=== PATIENT | female | born 1945 | race Caucasian/White ===

== ENCOUNTER → 2017-02-12 | Outpatient (CLI) | payer MEDICARE ==
[~2017-02-12] MED LIST: AMIT25TA PO; CHOL200040 PO; CYAN500T18 PO; DIPH25CA61 PO; FENO145T32 PO; FLUT1DIS IH; GABA300C10 PO; GLUC1TAB27 PO; GUIAFENESIN; HYDR1TAB12 PO; KRIL1CAP9 PO; LATA2.5D3 EACHEYE; LEVO100T5 PO; LISI1TAB5 PO; LYSI500T PO; METF500T4 PO; METO200T3 PO; OMEP-110 PO; PARO10TA3 PO; SIMV40TA3 PO; TRAM50TA2 PO; WARF7.5T PO; [UNRECOGNIZED DRUG - CODE] PO; [UNRECOGNIZED DRUG - CODE] PO
== END | disposition home or self-care (01) ==
LOC: CFH 07:40
PROVIDERS: ATTEND Internal Medicine
DX: I08.3 Combined rheumatic disorders of mitral, aortic and tricuspid valves (principal); I37.1 Nonrheumatic pulmonary valve insufficiency; J44.9 Chronic obstructive pulmonary disease, unspecified; I10 Essential (primary) hypertension; C44.80 Unspecified malignant neoplasm of overlapping sites of skin; E11.40 Type 2 diabetes mellitus with diabetic neuropathy, unspecified; E03.9 Hypothyroidism, unspecified; K21.9 Gastro-esophageal reflux disease without esophagitis; F32.9 Major depressive disorder, single episode, unspecified; E78.5 Hyperlipidemia, unspecified; G89.29 Other chronic pain; M54.2 Cervicalgia; K14.6 Glossodynia; H40.9 Unspecified glaucoma; J30.9 Allergic rhinitis, unspecified; R19.7 Diarrhea, unspecified; M25.559 Pain in unspecified hip; L30.9 Dermatitis, unspecified; R39.198 Other difficulties with micturition; Z87.891 Personal history of nicotine dependence; Z86.711 Personal history of pulmonary embolism
CPT/HCPCS: 93306

== ENCOUNTER → 2017-03-01 | Outpatient (CLI) | payer MEDICARE | END | disposition home or self-care (01) | LOC: CFH 11:30 | PROVIDERS: ATTEND Physician Assistant | DX: M19.012 Primary osteoarthritis, left shoulder (principal) ==

== ENCOUNTER → 2018-07-25 | Outpatient (CLI) | payer MEDICARE ==
[~2018-07-25] MED LIST changes: -METF500T4 PO; +METF500T5 PO; -METO200T3 PO; +METO200T47 PO; +OMNIPAQUE 350 MG/ML, 100ML BOTTLE ONE
== END | disposition home or self-care (01) ==
LOC: CFH 09:46
PROVIDERS: ATTEND Physician Assistant
DX: K76.0 Fatty (change of) liver, not elsewhere classified (principal); K40.90 Unilateral inguinal hernia, without obstruction or gangrene, not specified as recurrent; N28.1 Cyst of kidney, acquired; Z87.891 Personal history of nicotine dependence
CPT/HCPCS: 74177; 82565; Q9967

== ENCOUNTER 2018-08-11 19:54 | Inpatient (IN) | payer MEDICARE ==
[~2018-08-11] VITALS: Ht 160 cm; Wt 87.7 kg
[~2018-08-11 19:54] MED LIST changes: +METF500T17 PO; -METF500T5 PO; -OMNIPAQUE 350 MG/ML, 100ML BOTTLE ONE
[2018-08-11] MEDS ORDERED: DILTIAZEM 125 MG in DEXTROSE 5% 100 ML IV SCH (20:13)
[2018-08-11 20:29] LABS: BASOPHILS # (AUTO) 0.07 x10^3/uL (0-0.1); BASOPHILS % (AUTO) 1 % (0-1); EOSINOPHILS # (AUTO) 0.03 x10^3/uL (0-0.4); EOSINOPHILS % (AUTO) 0 % (1-7); LYMPHOCYTES # (AUTO) 2.14 x10^3/uL (1-3.4); LYMPHOCYTES % (AUTO) 22 % (22-44); MD NO; MEAN CORPUSCULAR HEMOGLOBIN 31.6 pg (27.0-34.8); MEAN CORPUSCULAR VOLUME 95.8 fL (80-100); MONOCYTES # (AUTO) 0.46 x10^3/uL (0.2-0.8); MONOCYTES % (AUTO) 5 % (2-9); NEUTROPHILS # (AUTO) 7.24 x10^3/uL (1.8-6.8); NEUTROPHILS % (AUTO) 73 % (42-75); PLATELET COUNT 393 x10^3/uL (130-400); RED BLOOD COUNT 4.92 x10^6/uL (3.82-5.3); RED CELL DISTRIBUTION WIDTH 14.2 % (9.6-15.2)
[2018-08-11] MEDS ORDERED: DILTIAZEM 5 MG/ML, 10ML IV ONE (20:30)
[2018-08-11] MEDS ORDERED: SODIUM CHLORIDE 0.9%, 500ML IVBOLUS ONE (20:30)
[2018-08-11] MEDS ORDERED: DILTIAZEM 5 MG/ML, 5ML IV ONE (20:30)
[2018-08-11 20:39] LABS: INTERNATIONAL NORMALIZED RATIO 1.54 (0.93-1.1); PROTHROMBIN TIME 15.9 Seconds (9.6-11.5)
[2018-08-11 20:41] LABS: ALBUMIN 3.1 g/dL (3.4-5.0); ANION GAP 15 mmol/L (5-15); CALCIUM 9.3 mg/dL (8.5-10.1); CHLORIDE 101 mmol/L (98-107); CREATININE 1.22 mg/dL (0.55-1.02)
[2018-08-11 20:45] LABS: TROPONIN I < 0.015 ng/mL (0.000-0.045)
[2018-08-11] MEDS ORDERED: LIDOCAINE 2% PO (21:31)
[2018-08-11] MEDS ORDERED: GLUC-88 PO (21:31)
[2018-08-11] MEDS ORDERED: COLE625T12 PO (21:31)
[2018-08-11] MEDS ORDERED: FLUTICASONE NAS (21:31)
[2018-08-11] MEDS ORDERED: TRAM50TA2 PO (21:31)
[2018-08-11] MEDS ORDERED: ATOR20TA9 PO (21:31)
[2018-08-11] MEDS ORDERED: MONT10TA9 PO (21:31)
[2018-08-11] MEDS ORDERED: BRIM5DRO3 EACHEYE (21:31)
[2018-08-11] MEDS ORDERED: GUAI400T66 PO (21:31)
[2018-08-11] MEDS ORDERED: [UNRECOGNIZED DRUG - REMARK] PO (21:31)
[2018-08-11] MEDS ORDERED: OMEP-110 PO (21:31)
[2018-08-11] MEDS ORDERED: METF500T17 PO (21:31)
[2018-08-11] MEDS ORDERED: GABA-827 PO (21:31)
[2018-08-11] MEDS ORDERED: FENO200C PO (21:31)
[2018-08-11] MEDS ORDERED: METO-93 PO (21:31)
[2018-08-11] MEDS ORDERED: HYDR-883 PO (21:31)
[2018-08-11] MEDS ORDERED: CARB15DR5 EACHEYE (21:31)
[2018-08-11] MEDS ORDERED: PARO40TA3 PO (21:31)
[2018-08-11] MEDS ORDERED: LATA7.5D EACHEYE (21:31)
[2018-08-11] MEDS ORDERED: AMIT25TA PO (21:31)
[2018-08-11 21:47] LABS: FREE T4 (FREE THYROXINE) 0.83 ng/dL (0.76-1.46); THYROID STIMULATING HORMONE 6.97 mIU/L (0.358-3.740)
[2018-08-11] MEDS ORDERED: ACETAMINOPHEN 325 MG TABLET PO PRN (22:30)
[2018-08-11] MEDS ORDERED: POLYETHYLENE GLYCOL 17 GM PACKET PO PRN (22:30)
[2018-08-11] MEDS ORDERED: ONDANSETRON ODT 4 MG PO PRN (22:30)
[2018-08-11] MEDS ORDERED: DILTIAZEM 5 MG/ML, 5ML IVPush PRN (22:30)
[2018-08-11] MEDS ORDERED: ONDANSETRON 2MG/ML, 2ML IVPush PRN (22:30)
[2018-08-11] MEDS: MELATONIN 5 MG TABLET PO SCH (22:42)
[2018-08-11] MEDS: SODIUM CHLORIDE 0.9% 1,000 ML IV SCH (22:43)
[2018-08-11 23:12] VITALS: BP 105/69
[2018-08-11] MEDS ORDERED: WARFARIN 5 MG TABLET PO-COUM ONE (23:45)
[2018-08-12] MEDS ORDERED: HYDROcodone/APAP 10/325 MG TABLET PO ONE (00:30)
[2018-08-12] MEDS: HYDROcodone/APAP 10/325 MG TABLET PO PRN ×3 (02:29→20:47)
[2018-08-12 02:44] VITALS: BP 138/88
[2018-08-12 05:10] LABS: ANION GAP 6 mmol/L (5-15); CALCIUM 8.4 mg/dL (8.5-10.1); CHLORIDE 103 mmol/L (98-107); CHOLESTEROL, TOTAL 164 mg/dL (140-239); CREATININE 0.76 mg/dL (0.55-1.02); TRIGLYCERIDES 624 mg/dL (50-200)
[2018-08-12 05:12] LABS: HDL CHOL % 20 % (28-40); HDL CHOLESTEROL (DIRECT) 33 mg/dL (40-60)
[2018-08-12 05:16] LABS: INTERNATIONAL NORMALIZED RATIO 1.76 (0.93-1.1); PROTHROMBIN TIME 18.1 Seconds (9.6-11.5)
[2018-08-12 06:59] VITALS: BP 131/78
[2018-08-12 07:50] LABS: MICROSCOPIC INDICATED
[2018-08-12] MEDS ORDERED: ALBUTEROL/IPRATROPIUM 2.5MG/0.5MG, 3 ML ONE (08:16)
[2018-08-12] MEDS ORDERED: CYANOCOBALAMIN 1,000 MCG TABLET ONE (08:18)
[2018-08-12 08:20] LABS: CULTURE INDICATED? YES
[2018-08-12] MEDS: INSULIN LISPRO 100 UNITS/ML, PEN SQ-INSULIN SCH ×4 (08:28→20:49)
[2018-08-12] MEDS: OMEPRAZOLE 20 MG CAPSULE.DR PO SCH (08:29)
[2018-08-12] MEDS: FENOFIBRATE 54 MG TABLET PO SCH (08:30)
[2018-08-12] MEDS: OMEGA-3/FISH OIL CAPSULE PO SCH (08:30)
[2018-08-12] MEDS: ASCORBIC ACID 500 MG TABLET PO SCH (08:30)
[2018-08-12] MEDS: CHOLECALCIFEROL 1,000 UNIT TABLET PO SCH (08:30)
[2018-08-12] MEDS ORDERED: MAGNESIUM SULFATE 4 GM in SODIUM CHLORIDE 0.9% 100 ML IV ONE (08:30)
[2018-08-12] MEDS: LEVOTHYROXINE 100 MCG TABLET PO SCH (08:30)
[2018-08-12] MEDS: PAROXETINE 20 MG TABLET PO SCH (08:30)
[2018-08-12] MEDS: COLESEVELAM 625 MG TABLET PO SCH ×2 (08:30→20:27)
[2018-08-12] MEDS: MONTELUKAST 10 MG TABLET PO SCH (08:31)
[2018-08-12] MEDS: HYDROCHLOROTHIAZIDE 12.5 MG CAPSULE PO SCH (08:31)
[2018-08-12] MEDS: metFORMIN 500 MG TABLET PO SCH ×3 (08:31→20:27)
[2018-08-12] MEDS: GABAPENTIN 400 MG CAPSULE PO SCH ×3 (08:31→20:27)
[2018-08-12] MEDS: LISINOPRIL 20 MG TABLET PO SCH (08:31)
[2018-08-12] MEDS: LATANOPROST OPHTH 0.005%, 2.5ML EACHEYE SCH (08:41)
[2018-08-12] MEDS: BRIMONIDINE TARTRATE OPHTH 0.15%, 5ML EACHEYE SCH ×2 (08:41→20:26)
[2018-08-12] MEDS ORDERED: [UNRECOGNIZED DRUG - OTHER] PO SCH (09:00)
[2018-08-12] MEDS: CYANOCOBALOMIN 100MCG TABLET PO SCH (11:12)
[2018-08-12] MEDS: SODIUM CHLORIDE 0.9% 1,000 ML IV SCH (11:22)
[2018-08-12 11:25] LABS: CLOSTRIDIUM DIFFICILE ANTIGEN NEGATIVE; CLOSTRIDIUM DIFFICILE TOXIN NEGATIVE (Negative)
[2018-08-12 12:22] VITALS: BP 113/79
[2018-08-12] MEDS: METOPROLOL TARTRATE 50 MG TABLET PO SCH (17:36)
[2018-08-12] MEDS ORDERED: WARFARIN 5 MG TABLET PO-COUM ONE (18:00)
[2018-08-12 19:04] VITALS: BP 148/74
[2018-08-12] MEDS: ATORVASTATIN 40 MG TABLET PO SCH (20:27)
[2018-08-12] MEDS: AMITRIPTYLINE 25 MG TABLET PO SCH (20:27)
[2018-08-12] MEDS: MELATONIN 5 MG TABLET PO SCH (20:47)
[2018-08-13] VITALS (7 sets, daily range): BP systolic 116–162; BP diastolic 66–100
[2018-08-13] MEDS: SODIUM CHLORIDE 0.9% 1,000 ML IV SCH ×2 (01:17→15:08)
[2018-08-13] MEDS: METOPROLOL TARTRATE 50 MG TABLET PO SCH ×2 (05:45→18:02)
[2018-08-13] MEDS: LEVOTHYROXINE 100 MCG TABLET PO SCH (05:45)
[2018-08-13 06:08] LABS: INTERNATIONAL NORMALIZED RATIO 1.98 (0.93-1.1); PROTHROMBIN TIME 20.3 Seconds (9.6-11.5)
[2018-08-13 06:13] LABS: ANION GAP 8 mmol/L (5-15); BASOPHILS # (AUTO) 0.03 x10^3/uL (0-0.1); BASOPHILS % (AUTO) 0 % (0-1); CALCIUM 8.6 mg/dL (8.5-10.1); CHLORIDE 106 mmol/L (98-107); EOSINOPHILS # (AUTO) 0.09 x10^3/uL (0-0.4); EOSINOPHILS % (AUTO) 1 % (1-7); LYMPHOCYTES % (AUTO) 24 % (22-44); MD NO; MEAN CORPUSCULAR HEMOGLOBIN 32.8 pg (27.0-34.8); MEAN CORPUSCULAR HGB CONC 34.4 g/dL (32.4-35.8); MEAN CORPUSCULAR VOLUME 95.4 fL (80-100); MEAN PLATELET VOLUME 7.8 fL (7.4-10.4); MONOCYTES # (AUTO) 0.47 x10^3/uL (0.2-0.8); MONOCYTES % (AUTO) 6 % (2-9); NEUTROPHILS # (AUTO) 5.17 x10^3/uL (1.8-6.8); NEUTROPHILS % (AUTO) 68 % (42-75); PLATELET COUNT 288 x10^3/uL (130-400)
[2018-08-13 06:14] LABS: CREATININE 0.56 mg/dL (0.55-1.02)
[2018-08-13] MEDS: OMEPRAZOLE 20 MG CAPSULE.DR PO SCH (09:05)
[2018-08-13] MEDS: PAROXETINE 20 MG TABLET PO SCH (09:05)
[2018-08-13] MEDS: LISINOPRIL 20 MG TABLET PO SCH (09:05)
[2018-08-13] MEDS: metFORMIN 500 MG TABLET PO SCH ×3 (09:06→20:33)
[2018-08-13] MEDS: GABAPENTIN 400 MG CAPSULE PO SCH ×3 (09:06→20:33)
[2018-08-13] MEDS: COLESEVELAM 625 MG TABLET PO SCH ×2 (09:07→20:32)
[2018-08-13] MEDS: FENOFIBRATE 54 MG TABLET PO SCH (09:07)
[2018-08-13] MEDS: HYDROCHLOROTHIAZIDE 12.5 MG CAPSULE PO SCH (09:08)
[2018-08-13] MEDS: CHOLECALCIFEROL 1,000 UNIT TABLET PO SCH (09:08)
[2018-08-13] MEDS: CYANOCOBALOMIN 100MCG TABLET PO SCH (09:08)
[2018-08-13] MEDS: INSULIN LISPRO 100 UNITS/ML, PEN SQ-INSULIN SCH ×4 (09:08→20:39)
[2018-08-13] MEDS: OMEGA-3/FISH OIL CAPSULE PO SCH (09:08)
[2018-08-13] MEDS: HYDROcodone/APAP 10/325 MG TABLET PO PRN ×2 (09:08→19:31)
[2018-08-13] MEDS: MONTELUKAST 10 MG TABLET PO SCH (09:09)
[2018-08-13] MEDS: ASCORBIC ACID 500 MG TABLET PO SCH (09:09)
[2018-08-13] MEDS: BRIMONIDINE TARTRATE OPHTH 0.15%, 5ML EACHEYE SCH ×2 (09:10→20:32)
[2018-08-13] MEDS: LATANOPROST OPHTH 0.005%, 2.5ML EACHEYE SCH (09:11)
[2018-08-13] MEDS ORDERED: DIGOXIN 0.25 MG/ML, 2ML IVPush ONE (11:00)
[2018-08-13] MEDS ORDERED: METOPROLOL TARTRATE 50 MG TABLET PO ONE (11:00)
[2018-08-13] MEDS ORDERED: WARFARIN 5 MG TABLET PO-COUM ONE (18:00)
[2018-08-13] MEDS: AMITRIPTYLINE 25 MG TABLET PO SCH (20:32)
[2018-08-13] MEDS: MELATONIN 5 MG TABLET PO SCH (20:32)
[2018-08-13] MEDS: ATORVASTATIN 40 MG TABLET PO SCH (20:32)
[2018-08-14 03:22] VITALS: BP 144/79
[2018-08-14] MEDS: SODIUM CHLORIDE 0.9% 1,000 ML IV SCH (04:10)
[2018-08-14 05:58] LABS: BASOPHILS # (AUTO) 0.02 x10^3/uL (0-0.1); BASOPHILS % (AUTO) 0 % (0-1); EOSINOPHILS # (AUTO) 0.08 x10^3/uL (0-0.4); EOSINOPHILS % (AUTO) 1 % (1-7); LYMPHOCYTES # (AUTO) 1.47 x10^3/uL (1-3.4); LYMPHOCYTES % (AUTO) 17 % (22-44); MD NO; MEAN CORPUSCULAR HEMOGLOBIN 32.2 pg (27.0-34.8); MEAN CORPUSCULAR HGB CONC 33.5 g/dL (32.4-35.8); MEAN PLATELET VOLUME 7.9 fL (7.4-10.4); MONOCYTES # (AUTO) 0.48 x10^3/uL (0.2-0.8); MONOCYTES % (AUTO) 6 % (2-9); NEUTROPHILS # (AUTO) 6.62 x10^3/uL (1.8-6.8); NEUTROPHILS % (AUTO) 76 % (42-75); PLATELET COUNT 282 x10^3/uL (130-400); RED BLOOD COUNT 4.21 x10^6/uL (3.82-5.3)
[2018-08-14 05:59] LABS: INTERNATIONAL NORMALIZED RATIO 1.81 (0.93-1.1); PROTHROMBIN TIME 18.6 Seconds (9.6-11.5)
[2018-08-14 06:03] LABS: ANION GAP 6 mmol/L (5-15); CALCIUM 8.7 mg/dL (8.5-10.1); CHLORIDE 106 mmol/L (98-107); CREATININE 0.58 mg/dL (0.55-1.02)
[2018-08-14 06:13] VITALS: BP 154/82
[2018-08-14] MEDS: LEVOTHYROXINE 100 MCG TABLET PO SCH (06:15)
[2018-08-14] MEDS: METOPROLOL TARTRATE 50 MG TABLET PO SCH (06:15)
[2018-08-14 06:25] LABS: HEMOGLOBIN A1C 8.3 % (4.2-6.3)
[2018-08-14] MEDS: HYDROcodone/APAP 10/325 MG TABLET PO PRN ×2 (06:31→14:56)
[2018-08-14 07:20] VITALS: BP 132/79
[2018-08-14] MEDS: INSULIN LISPRO 100 UNITS/ML, PEN SQ-INSULIN SCH ×2 (08:42→11:00)
[2018-08-14] MEDS: FENOFIBRATE 54 MG TABLET PO SCH (08:43)
[2018-08-14] MEDS: BRIMONIDINE TARTRATE OPHTH 0.15%, 5ML EACHEYE SCH (08:43)
[2018-08-14] MEDS: COLESEVELAM 625 MG TABLET PO SCH (08:43)
[2018-08-14] MEDS: MONTELUKAST 10 MG TABLET PO SCH (08:44)
[2018-08-14] MEDS: ASCORBIC ACID 500 MG TABLET PO SCH (08:44)
[2018-08-14] MEDS: OMEPRAZOLE 20 MG CAPSULE.DR PO SCH (08:44)
[2018-08-14] MEDS: OMEGA-3/FISH OIL CAPSULE PO SCH (08:44)
[2018-08-14] MEDS: CHOLECALCIFEROL 1,000 UNIT TABLET PO SCH (08:44)
[2018-08-14] MEDS: PAROXETINE 20 MG TABLET PO SCH (08:45)
[2018-08-14] MEDS: HYDROCHLOROTHIAZIDE 12.5 MG CAPSULE PO SCH (08:45)
[2018-08-14] MEDS: LISINOPRIL 20 MG TABLET PO SCH (08:45)
[2018-08-14] MEDS: metFORMIN 500 MG TABLET PO SCH (08:46)
[2018-08-14] MEDS: GABAPENTIN 400 MG CAPSULE PO SCH (08:46)
[2018-08-14] MEDS: LATANOPROST OPHTH 0.005%, 2.5ML EACHEYE SCH (08:49)
[2018-08-14] MEDS: CYANOCOBALOMIN 100MCG TABLET PO SCH (09:00)
[2018-08-14] MEDS ORDERED: METO50TA82 PO (11:44)
[2018-08-14] MEDS ORDERED: WARFARIN 7.5 MG TABLET PO-COUM ONE (18:00)
== END 2018-08-14 16:00 | disposition home health service (06) | DRG 308 ==
LOC: ED 21:13 → EDIP 21:20 → 5SO 22:20 → DCLOUNGE 08-14 15:38
PROVIDERS: ADMIT Hospitalist; ATTEND Hospitalist
DX: I48.91 Unspecified atrial fibrillation (principal); N17.0 Acute kidney failure with tubular necrosis; J96.11 Chronic respiratory failure with hypoxia; E03.9 Hypothyroidism, unspecified; E78.5 Hyperlipidemia, unspecified; I10 Essential (primary) hypertension; Z96.653 Presence of artificial knee joint, bilateral; F32.9 Major depressive disorder, single episode, unspecified; E11.40 Type 2 diabetes mellitus with diabetic neuropathy, unspecified; G89.29 Other chronic pain; M54.9 Dorsalgia, unspecified; E66.9 Obesity, unspecified; Z68.34 Body mass index [BMI] 34.0-34.9, adult; Z79.01 Long term (current) use of anticoagulants; Z86.718 Personal history of other venous thrombosis and embolism; Z90.710 Acquired absence of both cervix and uterus; Z99.81 Dependence on supplemental oxygen; Z90.49 Acquired absence of other specified parts of digestive tract
CPT/HCPCS: 36415; 71045; 80048; 80061; 81001; 82040; 82962; 83036; 83735; 83880; 84100; 84439; 84443; 84484; 85025; 85610; 87086; 87324; 93005; 93306; 96361; 96365; 96374; G0378; J3475; J1160; J1815; J7030; J7040

== ENCOUNTER → 2018-08-22 | Outpatient (CLI) | payer MEDICARE ==
[~2018-08-22] MED LIST changes: +ATOR20TA9 PO; +BRIM5DRO3 EACHEYE; +CARB15DR5 EACHEYE; +COLE625T12 PO; +FENO200C PO; +FLUTICASONE NAS; +FURO-93 PO; +GABA-827 PO; +GLUC-88 PO; +GUAI400T66 PO; +HYDR-883 PO; +LATA7.5D EACHEYE; +LEVO500T8 PO; +LIDOCAINE 2% PO; +LISI-170 PO; +METO-93 PO; +METO50TA82 PO; +MONT10TA9 PO; +PARO40TA3 PO; +POTA20TA6 PO; +[UNRECOGNIZED DRUG - REMARK] PO
== END | disposition home or self-care (01) ==
LOC: CFH 11:30
PROVIDERS: ATTEND Physician Assistant
DX: J90 Pleural effusion, not elsewhere classified (principal)
CPT/HCPCS: 71046

== ENCOUNTER 2018-08-23 10:41 | Inpatient (IN) | payer MEDICARE ==
[~2018-08-23] VITALS: Ht 162.1 cm; Wt 82.6 kg
[~2018-08-23 10:41] MED LIST changes: -FURO-93 PO; +HYDR-3652 PO; -HYDR-883 PO; -LEVO500T8 PO; -LISI-170 PO; -POTA20TA6 PO
[2018-08-23] MEDS ORDERED: SODIUM CHLORIDE FLUSH 10ML SYR IVF ONE (11:30)
[2018-08-23 12:05] LABS: BASOPHILS # (AUTO) 0.02 x10^3/uL (0-0.1); BASOPHILS % (AUTO) 0 % (0-1); EOSINOPHILS # (AUTO) 0.06 x10^3/uL (0-0.4); EOSINOPHILS % (AUTO) 1 % (1-7); LYMPHOCYTES # (AUTO) 1.35 x10^3/uL (1-3.4); LYMPHOCYTES % (AUTO) 15 % (22-44); MD NO; MEAN CORPUSCULAR HEMOGLOBIN 32.7 pg (27.0-34.8); MEAN CORPUSCULAR HGB CONC 33.6 g/dL (32.4-35.8); MEAN CORPUSCULAR VOLUME 97.2 fL (80-100); MEAN PLATELET VOLUME 7.8 fL (7.4-10.4); MONOCYTES # (AUTO) 0.52 x10^3/uL (0.2-0.8); MONOCYTES % (AUTO) 6 % (2-9); NEUTROPHILS # (AUTO) 6.99 x10^3/uL (1.8-6.8); NEUTROPHILS % (AUTO) 78 % (42-75); PLATELET COUNT 393 x10^3/uL (130-400); RED BLOOD COUNT 3.86 x10^6/uL (3.82-5.3); RED CELL DISTRIBUTION WIDTH 13.8 % (9.6-15.2)
[2018-08-23 12:06] LABS: INTERNATIONAL NORMALIZED RATIO 3.97 (0.93-1.1); PROTHROMBIN TIME 40.2 Seconds (9.6-11.5)
[2018-08-23 12:07] LABS: CHLORIDE 101 mmol/L (98-107)
[2018-08-23 12:56] LABS: ALBUMIN 2.5 g/dL (3.4-5.0); ANION GAP 10 mmol/L (5-15); CREATININE 0.73 mg/dL (0.55-1.02)
[2018-08-23 13:00] LABS: TROPONIN I < 0.015 ng/mL (0.000-0.045)
[2018-08-23] MEDS ORDERED: SODIUM CHLORIDE FLUSH 10ML SYR IVF PRN (13:30)
[2018-08-23] MEDS ORDERED: POLYETHYLENE GLYCOL 17 GM PACKET PO PRN (14:00)
[2018-08-23] MEDS ORDERED: ENALAPRILAT 1.25 MG/ML, 2ML IVPush PRN (14:00)
[2018-08-23] MEDS ORDERED: ONDANSETRON 2MG/ML, 2ML IVPush PRN (14:00)
[2018-08-23] MEDS ORDERED: ACETAMINOPHEN 325 MG TABLET PO PRN (14:00)
[2018-08-23] MEDS ORDERED: DOCUSATE 100 MG CAPSULE PO PRN (14:00)
[2018-08-23] MEDS ORDERED: BISACODYL 10 MG SUPP PR PRN (14:00)
[2018-08-23 14:41] VITALS: BP 151/65
[2018-08-23] MEDS: INSULIN LISPRO 100 UNITS/ML, PEN SQ-INSULIN SCH ×2 (16:00→22:19)
[2018-08-23] MEDS: HYDROcodone/APAP 5/325 TABLET PO PRN (16:09)
[2018-08-23] MEDS: GABAPENTIN 100 MG CAPSULE PO SCH ×2 (16:11→21:51)
[2018-08-23] MEDS ORDERED: LEVO500T8 PO (16:27)
[2018-08-23] MEDS: FUROSEMIDE 20 MG/2 ML IV SCH (17:23)
[2018-08-23] MEDS: POTASSIUM CHLORIDE 20 MEQ TAB.ER.PRT PO SCH (17:23)
[2018-08-23 17:27] VITALS: BP 167/89
[2018-08-23] MEDS ORDERED: WARFARIN 2 MG TABLET PO-COUM ONE (18:00)
[2018-08-23 18:09] LABS: MICROSCOPIC AUTO
[2018-08-23 18:10] LABS: CULTURE INDICATED? YES
[2018-08-23 18:39] VITALS: BP 161/86
[2018-08-23] MEDS: METOPROLOL TARTRATE 50 MG TABLET PO SCH (18:41)
[2018-08-23 18:57] VITALS: BP 149/66
[2018-08-23 19:31] LABS: TROPONIN I < 0.015 ng/mL (0.000-0.045)
[2018-08-23] MEDS ORDERED: MELATONIN 3 MG TABLET ONE (21:30)
[2018-08-23] MEDS: ATORVASTATIN 40 MG TABLET PO SCH (21:49)
[2018-08-23] MEDS: MELATONIN 3 MG TABLET PO PRN (21:49)
[2018-08-23] MEDS: COLESEVELAM 625 MG TABLET PO SCH (21:49)
[2018-08-23] MEDS: AMITRIPTYLINE 25 MG TABLET PO SCH (21:50)
[2018-08-23] MEDS: BRIMONIDINE TARTRATE OPHTH 0.15%, 5ML EACHEYE SCH (22:18)
[2018-08-24 00:33] VITALS: BP 161/54
[2018-08-24 00:55] LABS: TROPONIN I < 0.015 ng/mL (0.000-0.045)
[2018-08-24 04:53] LABS: BASOPHILS # (AUTO) 0.02 x10^3/uL (0-0.1); BASOPHILS % (AUTO) 0 % (0-1); EOSINOPHILS # (AUTO) 0.15 x10^3/uL (0-0.4); EOSINOPHILS % (AUTO) 2 % (1-7); LYMPHOCYTES # (AUTO) 1.62 x10^3/uL (1-3.4); LYMPHOCYTES % (AUTO) 21 % (22-44); MD NO; MEAN CORPUSCULAR HEMOGLOBIN 32.2 pg (27.0-34.8); MEAN CORPUSCULAR VOLUME 97.4 fL (80-100); MEAN PLATELET VOLUME 7.8 fL (7.4-10.4); MONOCYTES # (AUTO) 0.64 x10^3/uL (0.2-0.8); MONOCYTES % (AUTO) 8 % (2-9); NEUTROPHILS # (AUTO) 5.46 x10^3/uL (1.8-6.8); NEUTROPHILS % (AUTO) 69 % (42-75); PLATELET COUNT 366 x10^3/uL (130-400); RED CELL DISTRIBUTION WIDTH 13.8 % (9.6-15.2)
[2018-08-24 04:54] LABS: INTERNATIONAL NORMALIZED RATIO 3.63 (0.93-1.1); PROTHROMBIN TIME 36.8 Seconds (9.6-11.5)
[2018-08-24 05:04] LABS: CHLORIDE 100 mmol/L (98-107)
[2018-08-24 05:09] LABS: ANION GAP 7 mmol/L (5-15); CALCIUM 8.7 mg/dL (8.5-10.1); CREATININE 0.66 mg/dL (0.55-1.02)
[2018-08-24] MEDS: METOPROLOL TARTRATE 50 MG TABLET PO SCH ×2 (05:54→16:18)
[2018-08-24 07:05] VITALS: BP 171/67
[2018-08-24] MEDS ORDERED: CEFTRIAXONE 1,000 MG in SODIUM CHLORIDE 0.9% 50 ML IV SCH (07:30)
[2018-08-24] MEDS: INSULIN LISPRO 100 UNITS/ML, PEN SQ-INSULIN SCH ×4 (08:40→20:21)
[2018-08-24] MEDS: POTASSIUM CHLORIDE 20 MEQ TAB.ER.PRT PO SCH ×2 (08:41→16:18)
[2018-08-24] MEDS: HYDROcodone/APAP 5/325 TABLET PO PRN ×3 (08:41→21:14)
[2018-08-24] MEDS: LEVOTHYROXINE 100 MCG TABLET PO SCH (08:41)
[2018-08-24] MEDS: FUROSEMIDE 20 MG/2 ML IV SCH ×2 (08:41→16:20)
[2018-08-24] MEDS ORDERED: KRILL PO SCH (09:00)
[2018-08-24] MEDS ORDERED: EPA PO SCH (09:00)
[2018-08-24] MEDS ORDERED: [UNRECOGNIZED DRUG - OTHER] PO SCH (09:00)
[2018-08-24] MEDS ORDERED: LIPIDS PO SCH (09:00)
[2018-08-24] MEDS ORDERED: OMEGA PO SCH (09:00)
[2018-08-24] MEDS ORDERED: [UNRECOGNIZED DRUG - OTHER] PO SCH (09:00)
[2018-08-24] MEDS ORDERED: DHA PO SCH (09:00)
[2018-08-24] MEDS: PAROXETINE 20 MG TABLET PO SCH (09:59)
[2018-08-24] MEDS: GABAPENTIN 100 MG CAPSULE PO SCH ×3 (10:00→20:21)
[2018-08-24] MEDS: CYANOCOBALOMIN 100MCG TABLET PO SCH (10:01)
[2018-08-24] MEDS: LISINOPRIL 20 MG TABLET PO SCH (10:01)
[2018-08-24] MEDS: FENOFIBRATE 54 MG TABLET PO SCH (10:01)
[2018-08-24] MEDS: COLESEVELAM 625 MG TABLET PO SCH ×2 (10:01→20:21)
[2018-08-24] MEDS: ASCORBIC ACID 500 MG TABLET PO SCH (10:01)
[2018-08-24] MEDS: CHOLECALCIFEROL 1,000 UNIT TABLET PO SCH (10:01)
[2018-08-24] MEDS: LEVOFLOXACIN 500 MG TABLET PO SCH (10:01)
[2018-08-24] MEDS: MONTELUKAST 10 MG TABLET PO SCH (10:01)
[2018-08-24] MEDS: HYDROCHLOROTHIAZIDE 12.5 MG CAPSULE PO SCH (10:02)
[2018-08-24] MEDS: BRIMONIDINE TARTRATE OPHTH 0.15%, 5ML EACHEYE SCH ×2 (10:10→20:20)
[2018-08-24] MEDS: LATANOPROST OPHTH 0.005%, 2.5ML EACHEYE SCH (11:04)
[2018-08-24 13:54] VITALS: BP 113/57
[2018-08-24] MEDS ORDERED: WARFARIN 3 MG TABLET PO-COUM ONE (18:00)
[2018-08-24 19:12] VITALS: BP 155/69
[2018-08-24] MEDS: MELATONIN 3 MG TABLET PO PRN (20:20)
[2018-08-24] MEDS: AMITRIPTYLINE 25 MG TABLET PO SCH (20:21)
[2018-08-24] MEDS: ATORVASTATIN 40 MG TABLET PO SCH (20:21)
[2018-08-25 01:37] VITALS: BP 129/75
[2018-08-25 05:12] LABS: ANION GAP 6 mmol/L (5-15); CALCIUM 9.5 mg/dL (8.5-10.1); CHLORIDE 100 mmol/L (98-107)
[2018-08-25 05:13] LABS: CREATININE 0.75 mg/dL (0.55-1.02)
[2018-08-25] MEDS: METOPROLOL TARTRATE 50 MG TABLET PO SCH ×2 (06:13→18:15)
[2018-08-25] MEDS: LEVOTHYROXINE 100 MCG TABLET PO SCH (06:14)
[2018-08-25 07:05] VITALS: BP 157/69
[2018-08-25] MEDS: CHOLECALCIFEROL 1,000 UNIT TABLET PO SCH (08:17)
[2018-08-25] MEDS: POTASSIUM CHLORIDE 20 MEQ TAB.ER.PRT PO SCH ×2 (08:17→16:44)
[2018-08-25] MEDS: HYDROcodone/APAP 5/325 TABLET PO PRN ×3 (08:17→20:47)
[2018-08-25] MEDS: GABAPENTIN 100 MG CAPSULE PO SCH ×3 (08:17→20:47)
[2018-08-25] MEDS: FUROSEMIDE 20 MG/2 ML IV SCH ×2 (08:17→16:44)
[2018-08-25] MEDS: CYANOCOBALOMIN 100MCG TABLET PO SCH (08:17)
[2018-08-25] MEDS: HYDROCHLOROTHIAZIDE 12.5 MG CAPSULE PO SCH (08:18)
[2018-08-25] MEDS: FENOFIBRATE 54 MG TABLET PO SCH (08:18)
[2018-08-25] MEDS: COLESEVELAM 625 MG TABLET PO SCH ×2 (08:18→20:47)
[2018-08-25] MEDS: ASCORBIC ACID 500 MG TABLET PO SCH (08:18)
[2018-08-25] MEDS: MONTELUKAST 10 MG TABLET PO SCH (08:18)
[2018-08-25] MEDS: PAROXETINE 20 MG TABLET PO SCH (08:18)
[2018-08-25] MEDS: LISINOPRIL 20 MG TABLET PO SCH (08:19)
[2018-08-25] MEDS: LEVOFLOXACIN 500 MG TABLET PO SCH (08:19)
[2018-08-25] MEDS: INSULIN LISPRO 100 UNITS/ML, PEN SQ-INSULIN SCH ×4 (08:22→20:48)
[2018-08-25 09:13] LABS: INTERNATIONAL NORMALIZED RATIO 2.46 (0.93-1.1); PROTHROMBIN TIME 25.1 Seconds (9.6-11.5)
[2018-08-25] MEDS: LATANOPROST OPHTH 0.005%, 2.5ML EACHEYE SCH (10:04)
[2018-08-25] MEDS: CEFTRIAXONE PMX 1GM/50ML 50 ML IV SCH (10:04)
[2018-08-25] MEDS: BRIMONIDINE TARTRATE OPHTH 0.15%, 5ML EACHEYE SCH ×2 (10:04→20:48)
[2018-08-25 14:00] VITALS: BP 125/56
[2018-08-25] MEDS ORDERED: WARFARIN 7.5 MG TABLET PO-COUM ONE (18:00)
[2018-08-25 19:32] VITALS: BP 136/66
[2018-08-25] MEDS: MELATONIN 3 MG TABLET PO PRN (20:47)
[2018-08-25] MEDS: ATORVASTATIN 40 MG TABLET PO SCH (20:47)
[2018-08-25] MEDS: AMITRIPTYLINE 25 MG TABLET PO SCH (20:47)
[2018-08-26] VITALS: BP 101/55
[2018-08-26] MEDS: LEVOTHYROXINE 100 MCG TABLET PO SCH (05:31)
[2018-08-26] MEDS: HYDROcodone/APAP 5/325 TABLET PO PRN (05:31)
[2018-08-26 05:38] LABS: INTERNATIONAL NORMALIZED RATIO 1.84 (0.93-1.1); PROTHROMBIN TIME 18.7 Seconds (9.6-11.5)
[2018-08-26] MEDS: METOPROLOL TARTRATE 50 MG TABLET PO SCH (05:39)
[2018-08-26 05:42] LABS: ANION GAP 7 mmol/L (5-15); CALCIUM 9.9 mg/dL (8.5-10.1); CHLORIDE 99 mmol/L (98-107); CREATININE 0.83 mg/dL (0.55-1.02)
[2018-08-26 05:44] VITALS: BP 147/77
[2018-08-26 05:44] LABS: BASOPHILS # (AUTO) 0.06 x10^3/uL (0-0.1); BASOPHILS % (AUTO) 1 % (0-1); EOSINOPHILS # (AUTO) 0.13 x10^3/uL (0-0.4); EOSINOPHILS % (AUTO) 1 % (1-7); LYMPHOCYTES # (AUTO) 1.82 x10^3/uL (1-3.4); LYMPHOCYTES % (AUTO) 19 % (22-44); MD NO; MEAN CORPUSCULAR HEMOGLOBIN 32.1 pg (27.0-34.8); MEAN CORPUSCULAR HGB CONC 33.1 g/dL (32.4-35.8); MEAN PLATELET VOLUME 7.7 fL (7.4-10.4); MONOCYTES % (AUTO) 8 % (2-9); NEUTROPHILS # (AUTO) 7.02 x10^3/uL (1.8-6.8); NEUTROPHILS % (AUTO) 71 % (42-75); PLATELET COUNT 412 x10^3/uL (130-400); RED BLOOD COUNT 4.23 x10^6/uL (3.82-5.3); RED CELL DISTRIBUTION WIDTH 14.1 % (9.6-15.2)
[2018-08-26 06:51] VITALS: BP 121/59
[2018-08-26] MEDS: INSULIN LISPRO 100 UNITS/ML, PEN SQ-INSULIN SCH ×2 (08:08→12:19)
[2018-08-26] MEDS: FUROSEMIDE 20 MG/2 ML IV SCH (08:10)
[2018-08-26] MEDS: PAROXETINE 20 MG TABLET PO SCH (08:12)
[2018-08-26] MEDS: CYANOCOBALOMIN 100MCG TABLET PO SCH (08:12)
[2018-08-26] MEDS: GABAPENTIN 100 MG CAPSULE PO SCH ×2 (08:14→14:50)
[2018-08-26] MEDS: COLESEVELAM 625 MG TABLET PO SCH (08:15)
[2018-08-26] MEDS: LEVOFLOXACIN 500 MG TABLET PO SCH (08:16)
[2018-08-26] MEDS: HYDROCHLOROTHIAZIDE 12.5 MG CAPSULE PO SCH (08:17)
[2018-08-26] MEDS: FENOFIBRATE 54 MG TABLET PO SCH (08:17)
[2018-08-26] MEDS: LISINOPRIL 20 MG TABLET PO SCH (08:18)
[2018-08-26] MEDS: POTASSIUM CHLORIDE 20 MEQ TAB.ER.PRT PO SCH (08:18)
[2018-08-26] MEDS: CHOLECALCIFEROL 1,000 UNIT TABLET PO SCH (08:18)
[2018-08-26] MEDS: MONTELUKAST 10 MG TABLET PO SCH (08:19)
[2018-08-26] MEDS: ASCORBIC ACID 500 MG TABLET PO SCH (08:19)
[2018-08-26] MEDS: LATANOPROST OPHTH 0.005%, 2.5ML EACHEYE SCH (08:21)
[2018-08-26] MEDS: BRIMONIDINE TARTRATE OPHTH 0.15%, 5ML EACHEYE SCH (08:23)
[2018-08-26] MEDS: CEFTRIAXONE PMX 1GM/50ML 50 ML IV SCH (10:02)
[2018-08-26 13:25] VITALS: BP 125/74
[2018-08-26] MEDS ORDERED: POTA20TA6 PO (14:18)
[2018-08-26] MEDS ORDERED: LISI-170 PO (14:18)
[2018-08-26] MEDS ORDERED: FURO-93 PO (14:18)
[2018-08-26] MEDS ORDERED: FLU VACCINE PER PHARMACY IM ONE (14:30)
[2018-08-26] MEDS ORDERED: WARFARIN 3 MG TABLET PO-COUM SCH (18:00)
== END 2018-08-26 16:52 | disposition home or self-care (01) | DRG 291 ==
LOC: ED 11:32 → EDIP 13:26 → 5SO 14:35 → DCLOUNGE 08-26 16:35
PROVIDERS: ADMIT Internal Medicine; ATTEND Internal Medicine
DX: I11.0 Hypertensive heart disease with heart failure (principal); J96.21 Acute and chronic respiratory failure with hypoxia; E44.0 Moderate protein-calorie malnutrition; D68.69 Other thrombophilia; N39.0 Urinary tract infection, site not specified; E03.9 Hypothyroidism, unspecified; E11.65 Type 2 diabetes mellitus with hyperglycemia; E78.5 Hyperlipidemia, unspecified; H40.9 Unspecified glaucoma; I27.20 Pulmonary hypertension, unspecified; I34.0 Nonrheumatic mitral (valve) insufficiency; I48.0 Paroxysmal atrial fibrillation; I50.43 Acute on chronic combined systolic (congestive) and diastolic (congestive) heart failure; J44.9 Chronic obstructive pulmonary disease, unspecified; K21.9 Gastro-esophageal reflux disease without esophagitis; Z66 Do not resuscitate; G89.29 Other chronic pain; Z79.84 Long term (current) use of oral hypoglycemic drugs; Z82.3 Family history of stroke; Z86.711 Personal history of pulmonary embolism; Z87.891 Personal history of nicotine dependence; Z90.710 Acquired absence of both cervix and uterus; Z68.31 Body mass index [BMI] 31.0-31.9, adult; Z90.49 Acquired absence of other specified parts of digestive tract; Z80.9 Family history of malignant neoplasm, unspecified; Z79.899 Other long term (current) drug therapy
CPT/HCPCS: 36415; 70450; 71045; 80048; 81001; 82040; 82962; 83880; 84484; 85025; 85610; 85730; 87086; 90656; 93005; 93308; 93321; 93325; 96374; G0378; J0696; J1815; J1940

== ENCOUNTER → 2018-09-16 | Outpatient (CLI) | payer MEDICARE ==
[~2018-09-16] MED LIST changes: +FURO-93 PO; +LEVO500T8 PO; +LISI-170 PO; +POTA20TA6 PO
== END | disposition home or self-care (01) ==
LOC: CFH 10:51
PROVIDERS: ATTEND Internal Medicine Cardiovascular Disease
DX: I10 Essential (primary) hypertension (principal); I27.20 Pulmonary hypertension, unspecified; J44.9 Chronic obstructive pulmonary disease, unspecified; J90 Pleural effusion, not elsewhere classified; E11.9 Type 2 diabetes mellitus without complications; F17.200 Nicotine dependence, unspecified, uncomplicated; Z85.820 Personal history of malignant melanoma of skin
CPT/HCPCS: 71046

== ENCOUNTER → 2018-12-30 | Outpatient (CLI) | payer MEDICARE ==
[~2018-12-30] MED LIST changes: +ATOR20TA37 PO; -ATOR20TA9 PO
== END | disposition home or self-care (01) ==
LOC: CFH 15:39
PROVIDERS: ATTEND Physician Assistant
DX: M47.816 Spondylosis without myelopathy or radiculopathy, lumbar region (principal); M48.061 Spinal stenosis, lumbar region without neurogenic claudication; M25.78 Osteophyte, vertebrae; Z98.1 Arthrodesis status
CPT/HCPCS: 72148

== ENCOUNTER 2019-07-04 10:06 | Inpatient (IN) | payer MEDICARE ==
[~2019-07-04] VITALS: Ht 160 cm; Wt 80.2 kg
[2019-07-07 08:08] VITALS: BP 144/80
== END 2019-07-07 12:10 | disposition home health service (06) | DRG 293 ==
LOC: ED 11:07 → EDIP 12:27 → 4WST 14:32 → DCLOUNGE 07-07 11:51
PROVIDERS: ADMIT Internal Medicine; ATTEND Internal Medicine
DX: I11.0 Hypertensive heart disease with heart failure (principal); E03.9 Hypothyroidism, unspecified; I50.1 Left ventricular failure, unspecified; E78.5 Hyperlipidemia, unspecified; E83.42 Hypomagnesemia; F32.9 Major depressive disorder, single episode, unspecified; G47.00 Insomnia, unspecified; E11.42 Type 2 diabetes mellitus with diabetic polyneuropathy; H40.9 Unspecified glaucoma; I50.23 Acute on chronic systolic (congestive) heart failure; I48.91 Unspecified atrial fibrillation; K21.9 Gastro-esophageal reflux disease without esophagitis; Z66 Do not resuscitate; Z79.01 Long term (current) use of anticoagulants; Z79.899 Other long term (current) drug therapy; Z86.711 Personal history of pulmonary embolism; Z87.01 Personal history of pneumonia (recurrent); Z87.891 Personal history of nicotine dependence; Z79.84 Long term (current) use of oral hypoglycemic drugs
CPT/HCPCS: 36415; 71045; 80048; 80069; 82040; 82962; 83735; 83880; 84439; 84443; 84484; 85025; 93005; 96374; G0378; J1940; J7120

== ENCOUNTER → 2019-12-23 | Outpatient (CLI) | payer MEDICARE ==
[~2019-12-23] MED LIST changes: +AMLO-150 PO; +APIX5TAB PO; +GLIP5TAB10 PO; +HYDR-3343 PO; -HYDR1TAB12 PO; +HYDR1TAB13 PO; +LISI-167 PO; +LISI1TAB19 PO; -LISI1TAB5 PO; -LYSI500T PO; +LYSI500T8 PO; +METF10007 PO; +METH4TAB2 PO; +METO25TA35 PO
== END | disposition home or self-care (01) ==
LOC: CFH 10:49
PROVIDERS: ATTEND Nurse Practitioner Family
DX: J81.1 Chronic pulmonary edema (principal); I51.7 Cardiomegaly; J18.9 Pneumonia, unspecified organism
CPT/HCPCS: 71046

== ENCOUNTER 2020-05-30 17:30 | Inpatient (IN) | payer MEDICARE ==
[~2020-05-30] VITALS: Ht 160 cm; Wt 84.9 kg
[~2020-05-30 17:30] MED LIST changes: +CEFD300C37 PO; +CYCL-259 PO; +DOXY100C15 PO; +FURO-92 PO; -GUAI400T66 PO; +GUAI400T81 PO; +LEVO112T4 PO; -LISI1TAB19 PO; +LISI1TAB39 PO; +MELA5TAB14 PO; +METO-99 PO; +METO5TAB5 PO; +MONT10TA11 PO; -MONT10TA9 PO; +SIMV40TA20 PO; -SIMV40TA3 PO
[2020-05-30] MEDS ORDERED: MIDAZOLAM 1 MG/ML, 2ML ONE (17:51)
[2020-05-30] MEDS ORDERED: FLUMAZENIL 0.1 MG/1 ML, 5ML ONE (17:51)
[2020-05-30] MEDS ORDERED: FENTANYL PF 100 MCG/2ML ONE (17:55)
[2020-05-30] MEDS ORDERED: SODIUM CHLORIDE FLUSH 10ML SYR IVF ONE (18:00)
[2020-05-30] MEDS ORDERED: MIDAZOLAM 1 MG/ML, 5ML IVPush ONE (18:00)
[2020-05-30] MEDS ORDERED: FENTANYL PF 100 MCG/2ML IVPush ONE (18:00)
--- NOTE | 2020-05-30 18:28 | NUR ---
THIS TECH SPLINTED PT'S LOWER LEG. POSTERIOR + EMRE DOSHI CSM'S IN TACT
[2020-05-30 18:35] LABS: BASOPHILS # (AUTO) 0.02 x10^3/uL (0-0.1); BASOPHILS % (AUTO) 0 % (0-1); EOSINOPHILS # (AUTO) 0.08 x10^3/uL (0-0.4); EOSINOPHILS % (AUTO) 1 % (1-7); LYMPHOCYTES # (AUTO) 1.56 x10^3/uL (1-3.4); LYMPHOCYTES % (AUTO) 23 % (22-44); MD NO; MEAN CORPUSCULAR HEMOGLOBIN 32.3 pg (27.0-34.8); MEAN CORPUSCULAR HGB CONC 33.4 g/dL (32.4-35.8); MONOCYTES # (AUTO) 0.43 x10^3/uL (0.2-0.8); MONOCYTES % (AUTO) 6 % (2-9); NEUTROPHILS # (AUTO) 4.73 x10^3/uL (1.8-6.8); NEUTROPHILS % (AUTO) 69 % (42-75); PLATELET COUNT 374 x10^3/uL (130-400); RED BLOOD COUNT 4.71 x10^6/uL (3.82-5.3); RED CELL DISTRIBUTION WIDTH 13.9 % (9.6-15.2)
[2020-05-30 18:46] LABS: ALBUMIN 3.3 g/dL (3.4-5.0); ANION GAP 9 mmol/L (5-15); CALCIUM 9.6 mg/dL (8.5-10.1); CHLORIDE 90 mmol/L (98-107)
[2020-05-30 18:49] LABS: TROPONIN I < 0.015 ng/mL (0.000-0.045)
[2020-05-30 19:17] LABS: INTERNATIONAL NORMALIZED RATIO 0.96 (0.93-1.1); PROTHROMBIN TIME 10.2 Seconds (9.6-11.5)
[2020-05-30] MEDS ORDERED: POTASSIUM CHLORIDE 40 MEQ in SODIUM CHLORIDE 0.9% 1,000 ML IV ONE (19:30)
[2020-05-30] MEDS ORDERED: SODIUM CHLORIDE FLUSH 10ML SYR IVF PRN (19:30)
[2020-05-30] MEDS ORDERED: MAGNESIUM SULFATE 1 GM in SODIUM CHLORIDE 0.9% 50 ML IV ONE (19:30)
[2020-05-30] MEDS ORDERED: POTASSIUM CHLORIDE 10% 40 MEQ/30 ML UDC PO ONE (19:30)
[2020-05-30] MEDS ORDERED: MAGNESIUM SULFATE/D5W 100 ML IVPB SCH (19:30)
--- NOTE | 2020-05-30 19:31 | NUR ---
: JAY JAY BOCANEGRA [phone]
[2020-05-30] MEDS ORDERED: ASA/APAP/ CAFFEINE TABLET PO PRN (20:30)
[2020-05-30] MEDS ORDERED: hydrALAzine 20 MG/ML, 1ML IVPush PRN (20:30)
[2020-05-30] MEDS ORDERED: ONDANSETRON 2MG/ML, 2ML IVPush PRN (20:30)
[2020-05-30] MEDS ORDERED: GUAIFENESIN 200 MG TABLET PO PRN (20:30)
[2020-05-30] MEDS ORDERED: MELATONIN 5 MG TABLET PO PRN (20:30)
[2020-05-30] MEDS ORDERED: DOCUSATE 100 MG CAPSULE PO PRN (20:30)
[2020-05-30] MEDS ORDERED: GUAIFENESIN/DM 200-20MG, 10ML UDC PO PRN (20:30)
[2020-05-30] MEDS: morphine SULFATE 10 MG/ML, 1ML IVPush PRN (20:52)
[2020-05-30] MEDS: FAMOTIDINE 20 MG/2 ML IVPush SCH (21:29)
[2020-05-30] MEDS: CYCLOBENZAPRINE 10 MG TABLET PO SCH (21:29)
[2020-05-30] MEDS: ATORVASTATIN 20 MG TABLET PO SCH (21:30)
[2020-05-30] MEDS: METOPROLOL TARTRATE 100 MG TAB PO SCH (21:30)
[2020-05-30] MEDS: FUROSEMIDE 40 MG TABLET PO SCH (21:30)
[2020-05-30] MEDS: MONTELUKAST 10 MG TABLET PO SCH (21:30)
[2020-05-30] MEDS: MELATONIN 5 MG TABLET PO PRN (21:34)
[2020-05-30] MEDS: HYDROcodone/APAP 5/325 TABLET PO PRN (22:59)
[2020-05-30 23:07] VITALS: BP 118/70
[2020-05-30 23:44] LABS: TROPONIN I < 0.015 ng/mL (0.000-0.045)
[2020-05-31] VITALS (11 sets, daily range): BP systolic 92–167; BP diastolic 45–81
[2020-05-31] MEDS: morphine SULFATE 10 MG/ML, 1ML IVPush PRN ×8 (01:02→21:54)
[2020-05-31] MEDS: SODIUM CHLORIDE 0.9% 1,000 ML IV SCH ×2 (01:48→21:55)
[2020-05-31] MEDS ORDERED: ALBUTEROL HFA 90 MCG/SPRAY INH PRN (06:00)
[2020-05-31 06:51] LABS: BASOPHILS # (AUTO) 0.05 x10^3/uL (0-0.1); BASOPHILS % (AUTO) 1 % (0-1); EOSINOPHILS # (AUTO) 0.17 x10^3/uL (0-0.4); EOSINOPHILS % (AUTO) 2 % (1-7); LYMPHOCYTES # (AUTO) 2.02 x10^3/uL (1-3.4); LYMPHOCYTES % (AUTO) 23 % (22-44); MD NO; MEAN CORPUSCULAR HEMOGLOBIN 31.9 pg (27.0-34.8); MEAN CORPUSCULAR HGB CONC 32.7 g/dL (32.4-35.8); MEAN PLATELET VOLUME 8.2 fL (7.4-10.4); MONOCYTES # (AUTO) 0.58 x10^3/uL (0.2-0.8); MONOCYTES % (AUTO) 7 % (2-9); NEUTROPHILS # (AUTO) 5.92 x10^3/uL (1.8-6.8); NEUTROPHILS % (AUTO) 68 % (42-75); PLATELET COUNT 364 x10^3/uL (130-400); RED BLOOD COUNT 4.44 x10^6/uL (3.82-5.3)
[2020-05-31 06:53] LABS: ANION GAP 9 mmol/L (5-15); CALCIUM 9.1 mg/dL (8.5-10.1); CHLORIDE 98 mmol/L (98-107)
[2020-05-31 06:59] LABS: CREATININE 1.94 mg/dL (0.55-1.02); TROPONIN I < 0.015 ng/mL (0.000-0.045)
[2020-05-31] MEDS ORDERED: REGADENOSON 0.4 MG/5 ML SYRINGE ONE (08:48)
[2020-05-31] MEDS ORDERED: [UNRECOGNIZED DRUG - OTHER] PO SCH (09:00)
[2020-05-31] MEDS: LATANOPROST OPHTH 0.005%, 2.5ML EACHEYE SCH (09:00)
[2020-05-31] MEDS: POTASSIUM CHLORIDE 20 MEQ TAB.ER.PRT PO SCH (09:21)
[2020-05-31] MEDS: ASCORBIC ACID 500 MG TABLET PO SCH (09:21)
[2020-05-31] MEDS: METOPROLOL TARTRATE 100 MG TAB PO SCH ×2 (09:21→20:22)
[2020-05-31] MEDS: FUROSEMIDE 40 MG TABLET PO SCH ×2 (09:21→23:11)
[2020-05-31] MEDS: CYANOCOBALAMIN 1,000 MCG TABLET PO SCH (09:21)
[2020-05-31] MEDS: PAROXETINE 20 MG TABLET PO SCH (09:22)
[2020-05-31] MEDS: LEVOTHYROXINE 100 MCG TABLET PO SCH (09:22)
[2020-05-31] MEDS: OMEGA-3/FISH OIL CAPSULE PO SCH (09:22)
[2020-05-31] MEDS: FAMOTIDINE 20 MG/2 ML IVPush SCH (09:22)
[2020-05-31] MEDS ORDERED: CHLORHEXIDINE 15 ML UDC MM ONE (14:30)
[2020-05-31] MEDS ORDERED: FENTANYL PF 100 MCG/2ML ONE ×2 (14:34→18:49)
[2020-05-31] MEDS ORDERED: hydrALAzine 20 MG/ML, 1ML IV PRN (16:00)
[2020-05-31] MEDS ORDERED: OXYcodone 5 MG/5 ML ORAL.SOL UDC PO PRN (16:00)
[2020-05-31] MEDS ORDERED: LABETALOL 5MG/ML, 20ML IV PRN (16:00)
[2020-05-31] MEDS ORDERED: ACETAMINOPHEN 325 MG TABLET PO PRN (16:00)
[2020-05-31] MEDS ORDERED: ALBUTEROL SULFATE 2.5 MG/3 ML NPPB PRN ×2 (16:00)
[2020-05-31] MEDS ORDERED: CEFAZOLIN 1,000 MG ONE (16:19)
[2020-05-31] MEDS ORDERED: DEXAMETHASONE 4 MG/ML, 1ML ONE (16:19)
[2020-05-31] MEDS ORDERED: ONDANSETRON 2MG/ML, 2ML ONE (16:19)
[2020-05-31] MEDS ORDERED: PROPOFOL 10 MG/ML, 20ML ONE (16:19)
[2020-05-31] MEDS ORDERED: PHENYLEPHRINE 10 MG/ML ONE (16:20)
[2020-05-31] MEDS ORDERED: LIDOCAINE-MPF 2% ,5ML ONE (16:20)
[2020-05-31] MEDS ORDERED: METOPROLOL 1 MG/ML, 5ML ONE (17:57)
[2020-05-31] MEDS ORDERED: METOPROLOL 1 MG/ML, 5ML IVPush STA (18:11)
[2020-05-31] MEDS: FENTANYL PF 100 MCG/2ML IV PRN ×2 (18:50→19:08)
[2020-05-31] MEDS ORDERED: MORPHINE SULFATE 4 MG/ML, 1ML ONE (18:58)
[2020-05-31] MEDS: DIAZEPAM 5 MG/ML, 2ML IVPush PRN ×6 (19:09→23:10)
[2020-05-31] MEDS ORDERED: DIAZEPAM 5 MG/ML, 2ML ONE (19:10)
[2020-05-31] MEDS: CEFAZOLIN PMX 2GM/50ML 50 ML IVPB SCH (21:59)
[2020-05-31] MEDS: CYCLOBENZAPRINE 10 MG TABLET PO SCH (23:11)
[2020-05-31] MEDS: FENOFIBRATE 145 MG TABLET PO SCH (23:12)
[2020-05-31] MEDS: ATORVASTATIN 20 MG TABLET PO SCH (23:12)
[2020-05-31] MEDS: MONTELUKAST 10 MG TABLET PO SCH (23:12)
[2020-05-31] MEDS: HYDROcodone/APAP 5/325 TABLET PO PRN (23:17)
[2020-05-31] MEDS: MELATONIN 5 MG TABLET PO PRN (23:17)
[2020-06-01] VITALS (10 sets, daily range): BP systolic 90–153; BP diastolic 45–78
[2020-06-01] MEDS: CEFAZOLIN PMX 2GM/50ML 50 ML IVPB SCH (05:27)
[2020-06-01 05:50] LABS: BASOPHILS # (AUTO) 0.03 x10^3/uL (0-0.1); BASOPHILS % (AUTO) 0 % (0-1); EOSINOPHILS % (AUTO) 0 % (1-7); LYMPHOCYTES # (AUTO) 1.28 x10^3/uL (1-3.4); LYMPHOCYTES % (AUTO) 14 % (22-44); MD NO; MEAN CORPUSCULAR HEMOGLOBIN 31.8 pg (27.0-34.8); MEAN CORPUSCULAR HGB CONC 32.3 g/dL (32.4-35.8); MONOCYTES # (AUTO) 0.63 x10^3/uL (0.2-0.8); MONOCYTES % (AUTO) 7 % (2-9); NEUTROPHILS # (AUTO) 7.12 x10^3/uL (1.8-6.8); NEUTROPHILS % (AUTO) 79 % (42-75); PLATELET COUNT 329 x10^3/uL (130-400); RED BLOOD COUNT 3.97 x10^6/uL (3.82-5.3); RED CELL DISTRIBUTION WIDTH 14.1 % (9.6-15.2)
[2020-06-01] MEDS ORDERED: LEVOTHYROXINE 112 MCG TABLET PO SCH (06:00)
[2020-06-01 06:04] LABS: CHLORIDE 101 mmol/L (98-107)
[2020-06-01 06:12] LABS: ALANINE AMINOTRANSFERASE 43 U/L (12-78); ALBUMIN 2.6 g/dL (3.4-5.0); ALKALINE PHOSPHATASE 73 U/L (45-117); ANION GAP 6 mmol/L (5-15); BILIRUBIN,TOTAL 0.7 mg/dL (0.2-1.0); CALCIUM 8.8 mg/dL (8.5-10.1); CREATININE 1.61 mg/dL (0.55-1.02); TOTAL PROTEIN 6.2 g/dL (6.4-8.2)
[2020-06-01] MEDS ORDERED: POTASSIUM CHLORIDE 20 MEQ PACKET PO ONE (07:30)
[2020-06-01] MEDS: POTASSIUM CHLORIDE 20 MEQ TAB.ER.PRT PO SCH (07:58)
[2020-06-01] MEDS: CYANOCOBALAMIN 1,000 MCG TABLET PO SCH (07:58)
[2020-06-01] MEDS: OMEGA-3/FISH OIL CAPSULE PO SCH (07:59)
[2020-06-01] MEDS: ASCORBIC ACID 500 MG TABLET PO SCH (07:59)
[2020-06-01] MEDS: PAROXETINE 20 MG TABLET PO SCH (07:59)
[2020-06-01] MEDS: METOPROLOL TARTRATE 100 MG TAB PO SCH ×2 (07:59→20:20)
[2020-06-01] MEDS: FUROSEMIDE 40 MG TABLET PO SCH ×2 (07:59→20:19)
[2020-06-01] MEDS ORDERED: FAMOTIDINE 20 MG/2 ML IVPush SCH (09:00)
[2020-06-01] MEDS: LATANOPROST OPHTH 0.005%, 2.5ML EACHEYE SCH (10:11)
[2020-06-01] MEDS: HYDROcodone/APAP 5/325 TABLET PO PRN (11:21)
[2020-06-01] MEDS: SODIUM CHLORIDE 0.9% 1,000 ML IV SCH (14:19)
[2020-06-01] MEDS: ACETAMINOPHEN 325 MG TABLET PO PRN (17:29)
[2020-06-01] MEDS: MELATONIN 5 MG TABLET PO PRN (20:19)
[2020-06-01] MEDS: MONTELUKAST 10 MG TABLET PO SCH (20:19)
[2020-06-01] MEDS: ATORVASTATIN 20 MG TABLET PO SCH (20:19)
[2020-06-01] MEDS: CYCLOBENZAPRINE 10 MG TABLET PO SCH (20:19)
[2020-06-01] MEDS: FENOFIBRATE 145 MG TABLET PO SCH (20:19)
[2020-06-01] MEDS: APIXABAN 2.5 MG TABLET PO SCH (20:20)
[2020-06-01] MEDS ORDERED: APIXABAN 2.5 MG TABLET PO SCH (21:00)
[2020-06-02 01:11] VITALS: BP 110/68
[2020-06-02] MEDS: HYDROcodone/APAP 5/325 TABLET PO PRN ×4 (05:13→16:10)
[2020-06-02 06:53] VITALS: BP 128/74
[2020-06-02] MEDS: METOPROLOL TARTRATE 100 MG TAB PO SCH ×2 (07:40→22:28)
[2020-06-02] MEDS: FUROSEMIDE 40 MG TABLET PO SCH ×2 (07:40→22:28)
[2020-06-02] MEDS: FAMOTIDINE 20 MG TABLET PO SCH (07:40)
[2020-06-02] MEDS: CYANOCOBALAMIN 1,000 MCG TABLET PO SCH (07:42)
[2020-06-02] MEDS: POTASSIUM CHLORIDE 20 MEQ TAB.ER.PRT PO SCH (07:42)
[2020-06-02] MEDS: LEVOTHYROXINE 100 MCG TABLET PO SCH (07:42)
[2020-06-02] MEDS: PAROXETINE 20 MG TABLET PO SCH (07:43)
[2020-06-02] MEDS: APIXABAN 2.5 MG TABLET PO SCH ×2 (07:43→22:28)
[2020-06-02] MEDS: ASCORBIC ACID 500 MG TABLET PO SCH (07:44)
[2020-06-02 12:28] VITALS: BP 122/68
[2020-06-02] MEDS ORDERED: POTASSIUM CHLORIDE 20 MEQ TAB.ER.PRT PO ONE (12:30)
[2020-06-02] MEDS: OMEGA-3/FISH OIL CAPSULE PO SCH (12:33)
[2020-06-02] MEDS: LATANOPROST OPHTH 0.005%, 2.5ML EACHEYE SCH (14:54)
[2020-06-02 19:57] VITALS: BP 102/65
[2020-06-02] MEDS: ATORVASTATIN 20 MG TABLET PO SCH (21:00)
[2020-06-02 22:26] VITALS: BP 146/73
[2020-06-02] MEDS: MONTELUKAST 10 MG TABLET PO SCH (22:28)
[2020-06-02] MEDS: FENOFIBRATE 145 MG TABLET PO SCH (22:28)
[2020-06-02] MEDS: CYCLOBENZAPRINE 10 MG TABLET PO SCH (22:29)
[2020-06-03 01:02] VITALS: BP 103/61
[2020-06-03] MEDS ORDERED: LEVOTHYROXINE 100 MCG TABLET PO SCH (06:00)
[2020-06-03 07:11] LABS: ANION GAP 9 mmol/L (5-15); CALCIUM 9.5 mg/dL (8.5-10.1); CHLORIDE 97 mmol/L (98-107)
[2020-06-03 07:13] VITALS: BP 105/68
[2020-06-03 07:13] LABS: CREATININE 1.12 mg/dL (0.55-1.02)
[2020-06-03] MEDS ORDERED: FAMOTIDINE 40 MG TABLET ONE (08:36)
[2020-06-03] MEDS: PAROXETINE 20 MG TABLET PO SCH (08:50)
[2020-06-03] MEDS: FAMOTIDINE 20 MG TABLET PO SCH (08:51)
[2020-06-03] MEDS: APIXABAN 2.5 MG TABLET PO SCH ×2 (08:51→20:44)
[2020-06-03] MEDS: OMEGA-3/FISH OIL CAPSULE PO SCH ×2 (08:52→08:53)
[2020-06-03] MEDS: POTASSIUM CHLORIDE 20 MEQ TAB.ER.PRT PO SCH (08:52)
[2020-06-03] MEDS: CYANOCOBALAMIN 1,000 MCG TABLET PO SCH (08:52)
[2020-06-03] MEDS: ASCORBIC ACID 500 MG TABLET PO SCH (08:52)
[2020-06-03] MEDS: FUROSEMIDE 40 MG TABLET PO SCH ×2 (08:53→20:45)
[2020-06-03] MEDS: METOPROLOL TARTRATE 100 MG TAB PO SCH ×2 (08:53→20:43)
[2020-06-03] MEDS: LATANOPROST OPHTH 0.005%, 2.5ML EACHEYE SCH (08:56)
[2020-06-03] MEDS: HYDROcodone/APAP 5/325 TABLET PO PRN ×2 (08:56→15:12)
[2020-06-03] MEDS: ACETAMINOPHEN 325 MG TABLET PO PRN (11:48)
[2020-06-03 12:32] VITALS: BP 106/59
[2020-06-03 19:10] VITALS: BP 102/64
[2020-06-03 20:42] VITALS: BP 102/62
[2020-06-03] MEDS: ATORVASTATIN 20 MG TABLET PO SCH (20:43)
[2020-06-03] MEDS: FENOFIBRATE 145 MG TABLET PO SCH (20:44)
[2020-06-03] MEDS: CYCLOBENZAPRINE 10 MG TABLET PO SCH (20:44)
[2020-06-03] MEDS: MONTELUKAST 10 MG TABLET PO SCH (20:44)
[2020-06-03] MEDS: MELATONIN 5 MG TABLET PO PRN (20:48)
[2020-06-04 01:59] VITALS: BP 105/60
[2020-06-04 07:02] LABS: BASOPHILS # (AUTO) 0.04 x10^3/uL (0-0.1); BASOPHILS % (AUTO) 1 % (0-1); EOSINOPHILS % (AUTO) 1 % (1-7); LYMPHOCYTES # (AUTO) 1.66 x10^3/uL (1-3.4); LYMPHOCYTES % (AUTO) 21 % (22-44); MD NO; MEAN CORPUSCULAR HEMOGLOBIN 32.1 pg (27.0-34.8); MEAN CORPUSCULAR HGB CONC 32.5 g/dL (32.4-35.8); MEAN PLATELET VOLUME 7.9 fL (7.4-10.4); MONOCYTES # (AUTO) 0.68 x10^3/uL (0.2-0.8); MONOCYTES % (AUTO) 8 % (2-9); NEUTROPHILS # (AUTO) 5.53 x10^3/uL (1.8-6.8); NEUTROPHILS % (AUTO) 69 % (42-75); PLATELET COUNT 404 x10^3/uL (130-400); RED BLOOD COUNT 4.52 x10^6/uL (3.82-5.3); RED CELL DISTRIBUTION WIDTH 13.8 % (9.6-15.2)
[2020-06-04 07:09] LABS: ANION GAP 9 mmol/L (5-15); CALCIUM 10.4 mg/dL (8.5-10.1); CHLORIDE 96 mmol/L (98-107)
[2020-06-04 07:58] VITALS: BP 108/48
[2020-06-04] MEDS ORDERED: FAMOTIDINE 40 MG TABLET ONE (08:23)
[2020-06-04] MEDS: ASCORBIC ACID 500 MG TABLET PO SCH (08:45)
[2020-06-04] MEDS: CYANOCOBALAMIN 1,000 MCG TABLET PO SCH (08:45)
[2020-06-04] MEDS: APIXABAN 2.5 MG TABLET PO SCH (08:45)
[2020-06-04] MEDS: PAROXETINE 20 MG TABLET PO SCH (08:45)
[2020-06-04] MEDS: POTASSIUM CHLORIDE 20 MEQ TAB.ER.PRT PO SCH (08:45)
[2020-06-04] MEDS: SPIRONOLACTONE 25 MG TABLET PO SCH (08:46)
[2020-06-04] MEDS: OMEGA-3/FISH OIL CAPSULE PO SCH (08:46)
[2020-06-04] MEDS: HYDROcodone/APAP 5/325 TABLET PO PRN ×2 (08:46→15:27)
[2020-06-04] MEDS: LEVOTHYROXINE 100 MCG TABLET PO SCH (08:46)
[2020-06-04] MEDS: METOPROLOL TARTRATE 100 MG TAB PO SCH ×2 (08:46→20:47)
[2020-06-04] MEDS: FUROSEMIDE 40 MG TABLET PO SCH (08:47)
[2020-06-04] MEDS: FAMOTIDINE 20 MG TABLET PO SCH (08:47)
[2020-06-04] MEDS: LATANOPROST OPHTH 0.005%, 2.5ML EACHEYE SCH (08:47)
[2020-06-04 14:15] VITALS: BP 92/60
[2020-06-04] MEDS: ACETAMINOPHEN 325 MG TABLET PO PRN (14:27)
[2020-06-04] MEDS ORDERED: POTASSIUM CHLORIDE 40 MEQ in SODIUM CHLORIDE 0.9% 500 ML IV ONE (17:00)
[2020-06-04 19:34] VITALS: BP 102/65
[2020-06-04 20:45] VITALS: BP 103/67
[2020-06-04] MEDS: CYCLOBENZAPRINE 10 MG TABLET PO SCH (20:46)
[2020-06-04] MEDS: FENOFIBRATE 145 MG TABLET PO SCH (20:46)
[2020-06-04] MEDS: MONTELUKAST 10 MG TABLET PO SCH (20:46)
[2020-06-04] MEDS: ATORVASTATIN 20 MG TABLET PO SCH (20:47)
[2020-06-04] MEDS: APIXABAN 5 MG TABLET PO SCH (20:47)
[2020-06-04] MEDS: MELATONIN 5 MG TABLET PO PRN (20:49)
[2020-06-05 01:17] VITALS: BP 115/62
[2020-06-05 05:57] LABS: ANION GAP 8 mmol/L (5-15); CALCIUM 9.3 mg/dL (8.5-10.1); CHLORIDE 100 mmol/L (98-107)
[2020-06-05 06:00] LABS: CREATININE 1.28 mg/dL (0.55-1.02)
[2020-06-05] MEDS ORDERED: LEVOTHYROXINE 112 MCG TABLET PO SCH (06:00)
[2020-06-05 08:17] VITALS: BP 92/58
[2020-06-05] MEDS: LATANOPROST OPHTH 0.005%, 2.5ML EACHEYE SCH (09:00)
[2020-06-05] MEDS: FAMOTIDINE 20 MG TABLET PO SCH (09:00)
[2020-06-05] MEDS: APIXABAN 5 MG TABLET PO SCH (09:30)
[2020-06-05] MEDS: SPIRONOLACTONE 25 MG TABLET PO SCH (09:30)
[2020-06-05] MEDS: OMEGA-3/FISH OIL CAPSULE PO SCH (09:30)
[2020-06-05] MEDS: POTASSIUM CHLORIDE 20 MEQ TAB.ER.PRT PO SCH (09:30)
[2020-06-05] MEDS: METOPROLOL TARTRATE 100 MG TAB PO SCH (09:31)
[2020-06-05] MEDS: PAROXETINE 20 MG TABLET PO SCH (09:31)
[2020-06-05] MEDS: CYANOCOBALAMIN 1,000 MCG TABLET PO SCH (09:32)
[2020-06-05] MEDS: ASCORBIC ACID 500 MG TABLET PO SCH (09:32)
[2020-06-05] MEDS ORDERED: FAMOTIDINE 40 MG TABLET ONE (09:40)
[2020-06-05] MEDS: HYDROcodone/APAP 5/325 TABLET PO PRN ×2 (09:44→13:45)
[2020-06-05 13:42] VITALS: BP 121/80
[2020-06-06] MEDS ORDERED: LEVOTHYROXINE 100 MCG TABLET PO SCH (06:00)
== END 2020-06-05 15:26 | DRG 492 ==
LOC: OR 19:50 → EDIP 20:16 → 4WST 20:18
PROVIDERS: ADMIT Internal Medicine; ATTEND Hospitalist
PROC: 0QSG04Z Reposition Right Tibia with Internal Fixation Device, Open Approach (ICD-10-PCS; 2020-05-31)
PROC: 0QSJ04Z Reposition Right Fibula with Internal Fixation Device, Open Approach (ICD-10-PCS; principal; 2020-05-31 15:00)
DX: S82.851A Displaced trimalleolar fracture of right lower leg, initial encounter for closed fracture (principal); N17.0 Acute kidney failure with tubular necrosis; E87.1 Hypo-osmolality and hyponatremia; D68.69 Other thrombophilia; J96.10 Chronic respiratory failure, unspecified whether with hypoxia or hypercapnia; I50.30 Unspecified diastolic (congestive) heart failure; I13.0 Hypertensive heart and chronic kidney disease with heart failure and stage 1 through stage 4 chronic kidney disease, or unspecified chronic kidney disease; I48.21 Permanent atrial fibrillation; S93.04XA Dislocation of right ankle joint, initial encounter; J44.9 Chronic obstructive pulmonary disease, unspecified; E87.6 Hypokalemia; E66.9 Obesity, unspecified; E03.9 Hypothyroidism, unspecified; E11.22 Type 2 diabetes mellitus with diabetic chronic kidney disease; N18.9 Chronic kidney disease, unspecified; K21.9 Gastro-esophageal reflux disease without esophagitis; M54.9 Dorsalgia, unspecified; F32.9 Major depressive disorder, single episode, unspecified; Z20.828 Contact with and (suspected) exposure to other viral communicable diseases; E11.40 Type 2 diabetes mellitus with diabetic neuropathy, unspecified; E11.65 Type 2 diabetes mellitus with hyperglycemia; E78.1 Pure hyperglyceridemia; E78.5 Hyperlipidemia, unspecified; E87.8 Other disorders of electrolyte and fluid balance, not elsewhere classified; F03.90 Unspecified dementia, unspecified severity, without behavioral disturbance, psychotic disturbance, mood disturbance, and anxiety; G89.29 Other chronic pain; M81.0 Age-related osteoporosis without current pathological fracture; Y93.01 Activity, walking, marching and hiking; W01.0XXA Fall on same level from slipping, tripping and stumbling without subsequent striking against object, initial encounter; E07.9 Disorder of thyroid, unspecified; F12.90 Cannabis use, unspecified, uncomplicated; K52.9 Noninfective gastroenteritis and colitis, unspecified; M21.619 Bunion of unspecified foot; Z82.49 Family history of ischemic heart disease and other diseases of the circulatory system; Z82.5 Family history of asthma and other chronic lower respiratory diseases; Z87.891 Personal history of nicotine dependence; Z90.710 Acquired absence of both cervix and uterus; Z99.81 Dependence on supplemental oxygen; Y92.098 Other place in other non-institutional residence as the place of occurrence of the external cause; Z68.33 Body mass index [BMI] 33.0-33.9, adult; M25.512 Pain in left shoulder; I34.0 Nonrheumatic mitral (valve) insufficiency
CPT/HCPCS: 36415; 70450; 71045; 76000; 78452; 80048; 80053; 82040; 82962; 83735; 84100; 84443; 84484; 85025; 85610; 85730; 87635; 93005; 93017; 93306; 96365; 96375; 99291; C1713; G0378; J0690; J1100; J2250; J2405; J2704; J2785; J3010; J3360; J3480; A9502; J2270; J2370; J3490; J7030; J7040